=== PATIENT | female | born 1970 | race Caucasian/White ===

== ENCOUNTER 2016-11-13 05:10 | Observation (INO) | payer OTHER ==
[2016-11-03 08:38] VITALS: BMI 36.0
--- NOTE | 2016-11-03 09:15 | PAT Medication Instructions ---
Service Date Nov 03, 2016. Current Home Medication List Amitriptyline Hcl (Elavil), 100 MG PO HS Aspirin (Aspir-81), 81 MG PO QPM Atorvastatin (Lipitor), 40 MG PO HS Cholecalciferol (Vitamin D3), 3,000 TAB PO HS Docusate Sodium (Colace), 100 MG PO HS Flurbiprofen (Flurbiprofen), 100 MG PO BID Furosemide (Lasix), 20 MG PO DAILY PRN for SWELLING Hydrocodone/Acetaminophen 10MG/325MG ([place] 10MG/325MG), 1 TAB PO Q4 Hydroxychloroquine Sulfate (Plaquenil), 200 MG PO BID Levothyroxine Sodium (Levothyroxine Sodium), 1 TAB PO HS Metoprolol Tartrate (Lopressor) (Lopressor), 37.5 MG PO BID Omeprazole (Prilosec), 20 MG PO HS Tapentadol Hcl (Nucynta), 150 MG PO BID Topiramate (Topamax), 25 MG PO BID Medication Instructions For Your Scheduled Surgery - Hold the following medications the morning of surgery: Flurbiprofen (Flurbiprofen), 100 MG PO BID Furosemide (Lasix), 20 MG PO DAILY PRN for SWELLING - Take the following medications the morning of surgery with a sip of water OTHERWISE NOTHING TO EAT OR DRINK AFTER MIDNIGHT: Hydrocodone/Acetaminophen 10MG/325MG ([place] 10MG/325MG), 1 TAB PO Q4h (may take up to 4 hours prior to surgery if needed) Metoprolol Tartrate (Lopressor) (Lopressor), 37.5 MG PO BID Tapentadol Hcl (Nucynta), 150 MG PO BID (may take up to 4 hours prior to surgery if needed) Topiramate (Topamax), 25 MG PO BID Hydroxychloroquine Sulfate (Plaquenil), 200 MG PO BID - Take the following medications as scheduled the night before surgery: Atorvastatin (Lipitor), 40 MG PO HS Amitriptyline Hcl (Elavil), 100 MG PO HS Cholecalciferol (Vitamin D3), 3,000 TAB PO HS Docusate Sodium (Colace), 100 MG PO HS Aspirin (Aspir-81), 81 MG PO QPM (okay to continue per surgeon) Flurbiprofen (Flurbiprofen), 100 MG PO BID (okay to continue per surgeon) Hydrocodone/Acetaminophen 10MG/325MG ([place] 10MG/325MG), 1 TAB PO Q4h Metoprolol Tartrate (Lopressor) (Lopressor), 37.5 MG PO BID Levothyroxine Sodium (Levothyroxine Sodium), 1 TAB PO HS Tapentadol Hcl (Nucynta), 150 MG PO BID Topiramate (Topamax), 25 MG PO BID Omeprazole (Prilosec), 20 MG PO HS Hydroxychloroquine Sulfate (Plaquenil), 200 MG PO BID If you have any questions please call us at [phone] or [phone] or [phone]
[2016-11-03 10:05] LABS: BUN/CREATININE RATIO 18.3 (10-20); CALCIUM 9.7 mg/dl (8.5-10.1); CREATININE 0.65 mg/dl (0.60-1.20); POTASSIUM 4.2 mmol/L (3.5-5.1)
--- NOTE | 2016-11-03 10:10 | DIAGNOSTIC IMAGING REPORT ---
CHEST PREADMISSION(PA/LAT) CLINICAL HISTORY: Preoperative chest COMPARISON STUDY: 12/18/2005 FINDINGS: There is elevation right hemidiaphragm. There is blunting of the right lateral costophrenic angle. There are linear opacities the right lung base, likely represent atelectasis/scarring. These findings were not present in the December 2005 study, but were present on the CT gun stock checker radiograph of the abdomen and pelvis performed June 2016. The upper lung zones are clear. There is no failure.[ IMPRESSION: Elevation of the right hemidiaphragm with right basilar opacities likely atelectatic. In addition there is blunting of the right lateral costophrenic angle Electronically signed by: Rickey Joy M.D. 11/03/2016 10:09 AM Dictated Date/Time: 11/03/2016 10:07 AM
[2016-11-03 10:24] LABS: HEMATOCRIT 41.7 % (37-47); MEAN CELL VOLUME 92.7 fL (80-100); MEAN CORPUSCULAR HEMOGLOBIN 32.7 pg (25-34); MEAN CORPUSCULAR HGB CONC 35.3 g/dl (32-36); MEAN PLATELET VOLUME 9.7 fL (7.4-10.4); PLATELET COUNT 295 K/uL (130-400); WHITE BLOOD COUNT 11.68 K/uL (4.8-10.8)
[2016-11-03 10:26] LABS: BASO % 0.1 %; BASO ABS # 0.01 K/uL (0-0.2); COMPLETE YES; IG% 0.3 %; LYMPH % 10.4 %; LYMPH ABS # 1.21 K/uL (1.2-3.4); MONO % 3.1 %; NEUT % 86.1 %
[2016-11-13] VITALS (13 sets, daily range): BP systolic 104–137; BP diastolic 66–85; PULSE 92–135; TEMP 36.3–37.3; O2SAT 93–100; Ht 162.6 cm; Wt 91.0 kg
[~2016-11-13] VITALS: Ht 162.6 cm; Wt 91.0 kg
[~2016-11-13 05:10] MED LIST: AMIT100T2 PO; ANS100 PO; ASPI-232 PO; ATOR-24 PO; CHOL1000 PO; DOCU-94 PO; FURO-85 PO; HYDR-4079 PO; LEVO137T3 PO; METO25TA56 PO; PRLSR20 PO; TAPE75TA2 PO; TOPI25TA10 PO; [UNRECOGNIZED DRUG - CODE] PO
[2016-11-13] MEDS ORDERED: LACTATED RINGER'S 1000ML 1,000 ML IV SCH (06:00)
[2016-11-13] MEDS ORDERED: SCOPOLAMINE 1.5 MG TDSY TD SCH (06:00)
--- NOTE | 2016-11-13 06:28 | History & Physical Bridge Note ---
H&P Re-Evaluation Bridge Note: I have examined the patient, reviewed the History & Physical and in the interval since the performance of the History & Physical I have noted the following changes of clinical significance: No changes noted family at bedside abd neg
[2016-11-13] MEDS ORDERED: ROCURONIUM BROMIDE 10 MG/ML 5 ML VIAL ONE (07:00)
[2016-11-13] MEDS ORDERED: DEXAMETHASONE SOD INJ 4 MG/ML VIAL ONE ×2 (07:00→07:54)
[2016-11-13] MEDS ORDERED: ONDANSETRON INJ 2 MG/ML 2 ML VIAL ONE (07:00)
[2016-11-13] MEDS ORDERED: NEOSTIGMINE METHYLSULFATE 5 MG/5 ML SYR ONE (07:00)
[2016-11-13] MEDS ORDERED: GLYCOPYRROLATE INJ 0.2 MG/ML VIAL ONE (07:00)
[2016-11-13] MEDS ORDERED: LIDOCAINE HCL 2% 2 ML VIAL (20MG/ML) ONE (07:00)
[2016-11-13] MEDS ORDERED: PROPOFOL IV EMULSION 10 MG/ML 20 ML VIAL IV ONE (07:00)
[2016-11-13] MEDS ORDERED: MIDAZOLAM HCL 1 MG/ML 2ML VIAL ONE ×3 (07:01→11:29)
[2016-11-13] MEDS ORDERED: FENTANYL CITRATE INJ 50 MCG/1 ML 2 ML VIAL ONE ×2 (07:01→10:28)
[2016-11-13] MEDS ORDERED: BUPIVACAINE 0.5 % 5 MG/1 ML MPF 30ML VIAL ONE (07:08)
[2016-11-13] MEDS ORDERED: PHENYLEPHRINE 100MCG/ML 5ML SYR IV PRN (07:15)
[2016-11-13] MEDS ORDERED: ONDANSETRON INJ 2 MG/ML 2 ML VIAL IV PRN (07:15)
[2016-11-13] MEDS ORDERED: EpHEDrine SULFATE INJ 50 MG/ML AMP IV PRN (07:15)
[2016-11-13] MEDS ORDERED: ATROPINE SULFATE 0.1 MG/ML 5ML SYR IV PRN (07:15)
[2016-11-13] MEDS ORDERED: ALBUT/IPRATROP 3MG/0.5MG NEB 3 ML VIAL INH ONE (07:30)
[2016-11-13] MEDS ORDERED: LABETALOL HCL IV 5 MG/ML 20ML IV ONE (07:54)
[2016-11-13] MEDS ORDERED: HYDROmorphone INJ 2 MG/ML SYR/VIAL ONE (07:55)
--- NOTE | 2016-11-13 10:21 | [facility] Post Operative Brief Note ---
Immediate Operative Summary Operative Date Nov 13, 2016. Pre-Operative Diagnosis painful defecation, diverticultis of colon, intestinal adhesions Post-Operative Diagnosis painful defecation, diverticultis of colon, intestinal adhesions Procedure(s) Performed Diagnostic Laparoscopy; Extensive Lysis of Adhesions Surgeon Dr. Wesley Chauhan Crayon Molding Machine Operator Surgeon(s) Beny Fox PA-C Estimated Blood Loss 100ML Findings densa abdominal and pelvic adhesion with constricting band sigmoid rectal junction Specimens none per surgeon Dr. Wesley Chauhan Drains 19 katy per stab
--- NOTE | 2016-11-13 10:38 | Discharge Instructions ---
Discharge Instructions Date of Service Nov 13, 2016. Admission Reason for Admission: Diverticulitis Of Colon, Intestional Adhesions Discharge Discharge Diagnosis / Problem: Laparoscopy, lysis of adhesions Discharge Goals Goal(s): Decrease discomfort Activity Recommendations Activity Limitations: as noted below Lifting Limitations: no more than 10 pounds Shower/Bathe: no limitations . Instructions / Follow-Up Instructions / Follow-Up Dr. Box office next week to have drain removed, call [phone] Current Hospital Diet Patient's current hospital diet: Clear Liquid Diet Discharge Diet Recommended Diet: Regular Diet Procedures Procedures Performed: Diagnostic Laparoscopy; Extensive Lysis of Adhesions Pending Studies Studies pending at discharge: no Medical Emergencies . Who to Call and When: Medical Emergencies: If at any time you feel your situation is an emergency, please call 911 immediately. . Non-Emergent Contact Non-Emergency issues call your: Surgeon Call Non-Emergent contact if: you have a fever, temperature is above 101.5, your pain is not controlled, wound has increased redness, you have any medication questions . "Provider Documentation" section prepared by Beny Fox. VTE Core Measure Inpt VTE Proph given/why not?: SCD's
[2016-11-13] MEDS: HYDROmorphone INJ 2 MG/ML SYR/VIAL IV PRN ×7 (10:50→11:43)
[2016-11-13] MEDS ORDERED: IV FLUIDS COMPLETED PRN (11:00)
[2016-11-13] MEDS ORDERED: HYDROmorphone INJ 1 MG/ML SYR ONE ×2 (11:13→11:49)
[2016-11-13] MEDS ORDERED: NURSING VERBAL MED ORDER ONE ×4 (11:30→18:30)
--- NOTE | 2016-11-13 11:43 | OPERATIVE REPORT ---
DATE OF OPERATION: 11/13/2016 PREOPERATIVE DIAGNOSIS: Painful defecation, left lower quadrant pain. POSTOPERATIVE DIAGNOSIS: Same with dense pelvic and abdominal adhesions. PROCEDURE: Laparoscopy, lysis of dense abdominal and pelvic adhesions. SURGEON: Dr. Chauhan. VOTING MACHINE MECHANIC: Sathish Fox PA-C. OPERATION AND FINDINGS: SUMMARY: The patient was brought into the operating room theater. The Lorenz catheter was placed. She was placed in lithotomy position. The abdomen was prepped with Betadine solution and properly draped. Systemic antibiotics were given. I made a small opening above the umbilicus sufficient enough to insert Phyllis clamps to elevate the abdominal wall. A small opening in the fascia was made, 0 Vicryl suture was used as stay suture to control the fashion and 5 mm trocar was inserted under direct visualization. CO2 inflated. At this point, we then were able to place the scope and identified the patient had a significant abdominal adhesions in the midline incision, these were to the abdominal wall. We then at this point placed a 5 mm left flank port, then with this we were able to lyse some adhesions, some of them could not access in that fashion. We placed a left lower quadrant port. With the 2 camera holes there we were able then to free the abdominal wall adhesions. These were mostly omental adhesions. The attention was turned to the pelvis where the patient had a long history of significant sharp pain with defecation. She has had colonoscopy, CAT scans which was pretty much unremarkable, some mild diverticular disease. At this point, we placed a 5 mm right lower quadrant port and visualized in the left gutter that the patient had the omentum draped pretty much over the pelvic area but in right lower quadrant there were small bowel adhesions to the pelvic wall, quite extensive going down towards the pelvic area. We also could see that the patient on the left side had significant adhesions to the omentum going down towards the pelvis. We started dissecting the white line of Toldt on the left side and took down the sigmoid colon to the point that we were almost at the round ligament area, but once we were there we started meeting significant adhesions. We at this point changed our maneuver and tried to approach more anteriorly and freed up the abdominal adhesions down to that point. One plane of dissection was the bladder that we could see and actually could feel the Lorenz. We stayed underneath this to take it down underneath the symphysis pubis in a similar line with the extensive adhesions down to the end of the pelvic area were quite significant. The right side as stated down in the pelvic ring the small bowel was strictly adherent. We took meticulously dissected and freed everything up. We stayed away from the ureters. We at this point followed the sigmoid colon which showed the tenia. There was no really significant inflammatory process in the sigmoid colon, although the omentum and the epiploica were prominent. We took it down almost to the entry of the pelvic brim down into the pelvis. There was a really sharp cutoff point with an adhesive band. We could see the rectum and see the distal sigmoid colon and this was pulled down. We freed this up and once we freed this up and it seemed like to align that there was no true obstruction identified any more. We irrigated the pelvis copiously and then decided to drain it with 19 Suleman drain through a left lower quadrant stab wound positioned in the cul-de-sac. We did not enter the bowel and we spent about 2-1/2 hours lysing adhesions. The procedure was tolerated well. The wounds were closed with stay sutures in the umbilical area, the other ones 4-0 Monocryl. Steri-Strips applied. The patient was taken to recovery in good condition. Estimated blood loss approximately 100 mL. I attest to the content of the Intraoperative Record and any orders documented therein. Any exceptio ns are noted below.
[2016-11-13] MEDS ORDERED: HYDROCODONE/ACETAMI 10/325 TAB PO PRN (12:00)
[2016-11-13] MEDS: MoRPHine SULFATE 4 MG/ML 1 ML CARP\\VIAL IV PRN ×2 (13:12→15:02)
[2016-11-13] MEDS: SODIUM CHLORIDE 0.9% 1000ML 1,000 ML IV SCH ×3 (13:13→20:14)
--- NOTE | 2016-11-13 13:32 | Anesthesiology Progress Note ---
Anesthesia Post Op Note Date & Time Nov 13, 2016 at 13:25 Vital Signs Pain Intensity: 7.0 Vital Signs Past 12 Hours Date Time Temp Pulse Resp B/P Pulse Ox O2 Delivery O2 Flow Rate FiO2 11/13/16 12:45 Nasal Cannula 4.0 11/13/16 12:45 Nasal Cannula 4.0 11/13/16 12:45 36.7 101 18 110/66 95 Nasal Cannula 4.0 11/13/16 12:15 36.5 106 18 113/71 94 Nasal Cannula 4.0 11/13/16 12:06 100 16 11/13/16 12:06 98 16 96 11/13/16 12:05 111/76 11/13/16 12:01 110 15 97 11/13/16 12:01 110 15 11/13/16 12:00 113/79 11/13/16 11:56 99 16 11/13/16 11:56 97 16 97 11/13/16 11:55 97 16 11/13/16 11:55 98 16 121/76 96 11/13/16 11:50 106 15 111/59 96 11/13/16 11:50 107 15 11/13/16 11:49 110 24 11/13/16 11:49 111 24 99 11/13/16 11:47 108/71 11/13/16 11:44 106 17 97 11/13/16 11:44 105 17 11/13/16 11:43 107 14 98 11/13/16 11:43 109 14 11/13/16 11:40 36.2 11/13/16 11:40 125/69 11/13/16 11:38 105 17 94 11/13/16 11:38 105 17 11/13/16 11:33 109 19 11/13/16 11:33 110 19 98 11/13/16 11:30 106/68 11/13/16 11:28 93 10 95 11/13/16 11:28 93 10 11/13/16 11:27 97 17 11/13/16 11:27 97 17 98 11/13/16 11:25 123/64 11/13/16 11:22 102 17 98 11/13/16 11:22 102 17 11/13/16 11:21 118/48 11/13/16 11:17 100 13 97 11/13/16 11:17 99 13 11/13/16 11:16 113/74 11/13/16 11:12 103 24 11/13/16 11:12 105 24 96 11/13/16 11:10 107/76 11/13/16 11:07 98 20 11/13/16 11:07 100 20 97 11/13/16 11:06 119/77 11/13/16 11:02 87 16 98 11/13/16 11:02 91 16 11/13/16 11:00 107/77 11/13/16 10:57 95 12 97 11/13/16 10:57 94 12 11/13/16 10:56 96 16 11/13/16 10:56 96 16 98 11/13/16 10:55 114/79 11/13/16 10:51 91 19 100 11/13/16 10:51 92 16 11/13/16 10:50 105/78 11/13/16 10:46 90 14 11/13/16 10:46 88 14 118/70 100 11/13/16 10:41 90 16 11/13/16 10:41 89 16 98 11/13/16 10:40 100/77 11/13/16 10:39 86 13 11/13/16 10:39 85 13 97 11/13/16 10:35 116/72 11/13/16 10:34 95 18 11/13/16 10:34 96 18 99 11/13/16 10:30 114/76 11/13/16 10:29 85 16 101/65 92 11/13/16 10:29 36.3 90 16 114/76 99 Mask 15 11/13/16 10:29 85 16 11/13/16 07:15 92 16 95 Room Air 11/13/16 05:33 36.6 100 20 104/80 100 Room Air Notes Mental Status: alert / awake / arousable, participated in evaluation Pt Amnestic to Procedure: Yes Nausea / Vomiting: adequately controlled Pain: adequately controlled Airway Patency, RR, SpO2: stable & adequate BP & HR: stable & adequate Hydration State: stable & adequate Anesthetic Complications: no major complications apparent Shortly after being discharged to the floor I received a call from the floor that the patient was complaining of discomfort. She did not complain of discomfort while she was in the PACU and I saw her about fifteen or twenty minutes before she was discharged and she looked fine. When I went to her room, her left conjuctiva was injected near the medial canthus and she was tearing. I explained to her that she probably rubbed her eyes on the way up to her room and that this happens frequently to patients. I placed her on ketorolac drops and gentamycin opthalmic solution.
[2016-11-13] MEDS ORDERED: INFLUENZA ADMINISTRATION CHARGE ONE (14:30)
[2016-11-13] MEDS ORDERED: INFLUENZA VIRUS QUAD VACCINE 0.5 ML SYR IM. ONE (14:30)
[2016-11-13] MEDS: KETOROLAC 0.5% OP SOLN 3 ML BTL OPL SCH ×2 (14:58→18:34)
[2016-11-13] MEDS ORDERED: NALOXONE HCL 0.4 MG/1 ML VIAL/CARP IV PRN (15:00)
[2016-11-13] MEDS: GENTAMICIN SULFATE 0.3% OP SOLN 5 ML BTL OPL SCH ×2 (15:09→19:00)
[2016-11-13] MEDS: HYDROmorphone HCL 0.5MG/ML 50 ML CASSETTE IV PRN ×3 (15:41→19:02)
[2016-11-13] MEDS: CHECK SCOPOLAMINE PATCH PLACEMENT SCH ×2 (16:00→23:49)
[2016-11-13] MEDS: HYDROCODONE/ACETAMOPHEN 5/325MG TAB PO PRN (18:41)
[2016-11-13] MEDS: TAPENTADOL ER 50 MG TABCR PO SCH (18:42)
[2016-11-13] MEDS: AMITRIPTYLINE HCL 100 MG TAB PO SCH (18:43)
[2016-11-13] MEDS: LEVOTHYROXINE 137 MCG TAB PO SCH (18:44)
[2016-11-13] MEDS: METOPROLOL TARTRATE 25 MG TAB PO SCH (18:45)
[2016-11-13] MEDS: PANTOprazole SOD 40 MG TAB PO SCH (18:46)
[2016-11-13] MEDS: TOPIRAMATE 25 MG TAB PO SCH (18:47)
[2016-11-13] MEDS: HYDROXYCHLOROQUINE SULFATE 200 MG TAB PO SCH (18:47)
[2016-11-13] MEDS ORDERED: TAPENTADOL ER 50 MG TABCR PO SCH (21:00)
[2016-11-13] MEDS ORDERED: DOCUSATE SODIUM 100 MG CAP PO SCH (21:00)
[2016-11-13] MEDS: ONDANSETRON INJ 2 MG/ML 2 ML VIAL IV PRN (23:50)
[2016-11-14 01:17] LABS: HEMATOCRIT 37.4 % (37-47); IG% 0.4 %; LYMPH % 9.9 %; LYMPH ABS # 1.08 K/uL (1.2-3.4); MEAN CELL VOLUME 91.9 fL (80-100); MEAN CORPUSCULAR HEMOGLOBIN 32.4 pg (25-34); MEAN PLATELET VOLUME 9.4 fL (7.4-10.4); NEUT % 84.7 %; PLATELET COUNT 248 K/uL (130-400); RED BLOOD COUNT 4.07 M/uL (4.2-5.4); WHITE BLOOD COUNT 10.93 K/uL (4.8-10.8)
[2016-11-14 01:22] LABS: COMPLETE YES; MEAN CORPUSCULAR HGB CONC 35.3 g/dl (32-36)
[2016-11-14 01:33] VITALS: PULSE 110; O2SAT 94
[2016-11-14 02:01] LABS: ALB/GLOB RATIO 1.1 (0.9-2); BUN/CREATININE RATIO 10.1 (10-20); CALCIUM 8.4 mg/dl (8.5-10.1); CREATININE 0.81 mg/dl (0.60-1.20)
[2016-11-14 03:33] VITALS: BP 102/64; PULSE 110; TEMP 37.3; O2SAT 99
[2016-11-14] MEDS: SODIUM CHLORIDE 0.9% 1000ML 1,000 ML IV SCH ×2 (03:59→17:15)
--- NOTE | 2016-11-14 04:56 | Medical Consult ---
Consultation Date of Consultation: Nov 14, 2016. Attending Physician: Wesley Chauhan M.D. Reason for Consultation: Tachycardia postoperatively. History of Present Illness The patient is a 46 female who underwent lysis of adhesions by Dr. Christine earlier in the day. She then developed an increased heart rate, with a known history of SVT, and consult was placed. The patient is resting comfortably this time. She is aware of her heartbeat beating a little more past than usual. She has no chest pain or shortness of breath, lightheadedness or dizziness, numbness or tingling in arms or legs, and reports that her postoperative pain is well controlled. Family History Cancer Diabetes mellitus Gallbladder disease Heart disease Hypertension Kidney disease Kidney stones Lung disease Social History Smoking Status: Current Every Day Smoker Smokeless Tobacco Use: No Alcohol Use: none Drug Use: none Marital Status: Housing Status: lives with family Occupation Status: disabled Allergies Coded Allergies: Adhesives (Verified Allergy, Mild, [id number]-[id number]-DAEZ BLISTERS, 11/13/16) Oxycodone (Unverified Allergy, Unknown, EXTENDED VOMITING FOR DAYS, ) Prednisone (Unverified Allergy, Unknown, ORAL PREDNISONE-BLOOD DIARRHEA, ) Rofecoxib (Verified Allergy, Unknown, RASH/HIVES, 11/13/16) Current Inpatient Medications Current Inpatient Medications Medications (Trade) Dose Ordered Sig/Neal Route Start Time Stop Time Status Last Admin Dose Admin Miscellaneous (Remove Transderm-Scop Patch) 1 ea Q72H N/A 11/16/16 06:00 11/16/16 06:01 Miscellaneous Information 1 ea 1 ea QS N/A 11/13/16 16:00 11/16/16 05:59 11/13/16 23:49 1 EA Sodium Chloride (Nss 1000ml) 1,000 ml @ 125 mls/hr Q8H IV 11/13/16 10:32 12/13/16 10:31 11/14/16 03:59 125 MLS/HR Ondansetron HCl (Zofran Inj) 4 mg Q4H PRN IV 11/13/16 10:45 12/13/16 10:44 11/13/16 23:50 4 MG Acetaminophen/ Hydrocodone Bitart ([place] 5/325 Tab) 1 tab Q4H PRN PO 11/13/16 10:45 11/27/16 10:44 11/13/16 18:41 1 TAB Morphine Sulfate (MoRPHine SULFATE INJ) 4 mg Q1H PRN IV 11/13/16 10:45 11/27/16 10:44 11/13/16 15:02 4 MG Amitriptyline HCl (Elavil Tab) 100 mg HS PO 11/13/16 21:00 12/13/16 20:59 11/13/16 18:43 100 MG Docusate Sodium (coLACE CAP) 100 mg HS PO 11/13/16 21:00 12/13/16 20:59 11/13/16 18:43 100 MG Acetaminophen/ Hydrocodone Bitart ([place] 10/325 Tab) 1 tab Q4 PRN PO 11/13/16 12:00 11/27/16 11:59 Hydroxychloroquine Sulfate (Plaquenil Tab) 200 mg BID PO 11/13/16 21:00 12/13/16 20:59 11/13/16 18:47 200 MG Levothyroxine Sodium (Synthroid Tab) 137 mcg HS PO 11/13/16 21:00 12/13/16 20:59 11/13/16 18:44 137 MCG Metoprolol Tartrate (Lopressor Tab) 37.5 mg BID PO 11/13/16 21:00 12/13/16 20:59 11/13/16 18:45 37.5 MG Topiramate (Topamax Tab) 25 mg BID PO 11/13/16 21:00 12/13/16 20:59 11/13/16 18:47 25 MG Miscellaneous Information (Order Awaiting Action) 1 ea QS N/A 11/13/16 16:00 12/13/16 15:59 Pantoprazole Sodium (Protonix Tab) 40 mg HS PO 11/13/16 21:00 12/13/16 20:59 11/13/16 18:46 40 MG Miscellaneous (Iv Fluids Completed) 1 ea PRN PRN N/A 11/13/16 11:00 11/13/17 10:59 Ketorolac Tromethamine (Acular 0.5 Oph Soln) 2 drops 4XDQ4H OPL 11/13/16 15:00 12/13/16 14:59 11/13/16 18:34 2 DROPS Gentamicin Sulfate (Gentamicin 0.3% Oph Soln) 2 drops 4XDQ4H OPL 11/13/16 15:00 11/23/16 14:59 11/13/16 19:00 2 DROPS Naloxone HCl (Narcan Inj) 0.1 mg Q5M PRN IV 11/13/16 15:00 12/13/16 14:59 Hydromorphone HCl 25 mg 25 mg PRN PRN IV 11/13/16 15:00 11/27/16 14:59 11/13/16 19:02 25 MG Sodium Chloride (Nss 1000ml) 1,000 ml @ 15 mls/hr Q24H IV 11/13/16 14:49 12/13/16 14:48 Tapentadol (Nucynta Er Tab) 150 mg BID PO 11/13/16 19:00 12/13/16 18:59 11/13/16 18:42 150 MG Review of Systems The patient denies chest pain, shortness of breath, cough, lower extremity swelling, vision change, hearing change, sore throat, fevers, chills, sweats, fatigue, nausea, vomiting, blood in urine or stool, dysuria, urinary frequency or urgency, lightheadedness, dizziness, headache, memory loss, rash, abnormal bruising or bleeding, imbalance, focal or generalized weakness, numbness or tingling in arms or legs, arthralgias or myalgias, back or neck pain, night sweats, or allergy symptoms. The review of systems is otherwise negative other than for that already noted above, and at least 10 systems have been reviewed. Physical Exam Date Time Temp Pulse Resp B/P Pulse Ox O2 Delivery O2 Flow Rate FiO2 11/14/16 03:33 37.3 110 16 102/64 99 Room Air 11/14/16 01:33 110 94 Room Air 11/13/16 23:05 36.4 105 16 105/69 96 Room Air 11/13/16 20:00 Room Air 11/13/16 18:52 37.2 132 18 121/69 94 Room Air 11/13/16 17:51 37.3 135 18 130/81 94 Room Air 11/13/16 16:51 116 11/13/16 16:43 37.1 130 18 121/73 96 Room Air 11/13/16 15:42 37.0 116 18 122/83 99 Room Air 11/13/16 15:30 Room Air 11/13/16 15:16 37.3 117 18 115/79 97 Room Air 11/13/16 14:18 36.3 115 18 137/85 97 Room Air 11/13/16 13:29 101 16 108/67 93 Nasal Cannula 4.0 11/13/16 12:45 Nasal Cannula 4.0 11/13/16 12:45 Nasal Cannula 4.0 11/13/16 12:45 36.7 101 18 110/66 95 Nasal Cannula 4.0 11/13/16 12:15 36.5 106 18 113/71 94 Nasal Cannula 4.0 11/13/16 12:06 100 16 11/13/16 12:06 98 16 96 11/13/16 12:05 111/76 11/13/16 12:01 110 15 97 11/13/16 12:01 110 15 11/13/16 12:00 113/79 11/13/16 11:56 99 16 11/13/16 11:56 97 16 97 11/13/16 11:55 97 16 11/13/16 11:55 98 16 121/76 96 11/13/16 11:50 106 15 111/59 96 11/13/16 11:50 107 15 11/13/16 11:49 110 24 11/13/16 11:49 111 24 99 11/13/16 11:47 108/71 11/13/16 11:44 106 17 97 11/13/16 11:44 105 17 11/13/16 11:43 107 14 98 11/13/16 11:43 109 14 11/13/16 11:40 36.2 11/13/16 11:40 125/69 11/13/16 11:38 105 17 94 11/13/16 11:38 105 17 11/13/16 11:33 109 19 11/13/16 11:33 110 19 98 11/13/16 11:30 106/68 11/13/16 11:28 93 10 95 11/13/16 11:28 93 10 11/13/16 11:27 97 17 11/13/16 11:27 97 17 98 11/13/16 11:25 123/64 11/13/16 11:22 102 17 98 11/13/16 11:22 102 17 11/13/16 11:21 118/48 11/13/16 11:17 100 13 97 11/13/16 11:17 99 13 11/13/16 11:16 113/74 11/13/16 11:12 103 24 11/13/16 11:12 105 24 96 11/13/16 11:10 107/76 11/13/16 11:07 98 20 11/13/16 11:07 100 20 97 11/13/16 11:06 119/77 11/13/16 11:02 87 16 98 11/13/16 11:02 91 16 11/13/16 11:00 107/77 11/13/16 10:57 95 12 97 11/13/16 10:57 94 12 11/13/16 10:56 96 16 11/13/16 10:56 96 16 98 11/13/16 10:55 114/79 11/13/16 10:51 91 19 100 11/13/16 10:51 92 16 11/13/16 10:50 105/78 11/13/16 10:46 90 14 11/13/16 10:46 88 14 118/70 100 11/13/16 10:41 90 16 11/13/16 10:41 89 16 98 11/13/16 10:40 100/77 11/13/16 10:39 86 13 11/13/16 10:39 85 13 97 11/13/16 10:35 116/72 11/13/16 10:34 95 18 11/13/16 10:34 96 18 99 11/13/16 10:30 114/76 11/13/16 10:29 85 16 101/65 92 11/13/16 10:29 36.3 90 16 114/76 99 Mask 15 11/13/16 10:29 85 16 11/13/16 07:15 92 16 95 Room Air 11/13/16 05:33 36.6 100 20 104/80 100 Room Air The patient is awake, well-developed and adequately nourished, alert and oriented 3, normocephalic and atraumatic, lying in bed and in no acute distress. HEENT--PERRL, EOMI, mucous membranes and oropharynx mildly dry. Neck--supple, no JVD or bruits, thyroid normal, trachea midline, no adenopathy. Heart--mildly tachycardic and regular, no extra beats, no murmurs, rubs or gallops. Lungs--clear bilaterally with good air movement, no respiratory distress, no accessory muscle use. Abdomen--normal bowel sounds and soft, nontender and nondistended, no hernias or masses, no organomegaly. Extremities--no cyanosis, clubbing or edema. There are good distal pulses b/l. Dermatologic--normal skin turgor, normal color, warm and dry, no abnormal lymph nodes, no rash. Neurologic--cranial nerves II through XII grossly intact, motor and sensory examination normal. Rheumatologic--normal range of motion, nontender, muscles and joints. Psychiatric--normal affect. Laboratory Results Last 24 Hours Test 11/14/16 00:50 11/14/16 04:44 White Blood Count 10.93 K/uL Red Blood Count 4.07 M/uL Hemoglobin 13.2 g/dL Hematocrit 37.4 % Mean Corpuscular Volume 91.9 fL Mean Corpuscular Hemoglobin 32.4 pg Mean Corpuscular Hemoglobin Concent 35.3 g/dl Platelet Count 248 K/uL Mean Platelet Volume 9.4 fL Neutrophils (%) (Auto) 84.7 % Lymphocytes (%) (Auto) 9.9 % Monocytes (%) (Auto) 5.0 % Eosinophils (%) (Auto) 0.0 % Basophils (%) (Auto) 0.0 % Neutrophils # (Auto) 9.26 K/uL Lymphocytes # (Auto) 1.08 K/uL Monocytes # (Auto) 0.55 K/uL Eosinophils # (Auto) 0.00 K/uL Basophils # (Auto) 0.00 K/uL RDW Standard Deviation 42.5 fL RDW Coefficient of Variation 12.6 % Immature Granulocyte % (Auto) 0.4 % Immature Granulocyte # (Auto) 0.04 K/uL Sodium Level 143 mmol/L Potassium Level 4.0 mmol/L Chloride Level 111 mmol/L Carbon Dioxide Level 21 mmol/L Anion Gap 11.0 mmol/L Blood Urea Nitrogen 8 mg/dl Creatinine 0.81 mg/dl Est Creatinine Clear Calc Drug Dose 94.9 ml/min Estimated GFR () 100.9 Estimated GFR (Non- 87.1 BUN/Creatinine Ratio 10.1 Random Glucose 180 mg/dl Calcium Level 8.4 mg/dl Magnesium Level 2.0 mg/dl Total Bilirubin 0.3 mg/dl Aspartate Amino Transf (AST/SGOT) 21 U/L Alanine Aminotransferase (ALT/SGPT) 46 U/L Alkaline Phosphatase 73 U/L Total Protein 7.0 gm/dl Albumin 3.7 gm/dl Globulin 3.3 gm/dl Albumin/Globulin Ratio 1.1 Assessment & Plan Sinus tachycardia--the patient is seen postoperatively with a mild sinus tachycardia is medically stable. EKG shows no acute ST-T changes or concerning rhythms. We'll check a CBC with differential, chemistry profile and magnesium level. Continue with IV fluid resuscitation. Of note, the patient did not take her morning metoprolol tartrate dose since she took her her evening dose last night 11:00 and left for surgery at 5:00 this morning. Therefore, her tachycardia is not unexpected, and would continue her usual dosing of metoprolol tartrate 37.5 mg by mouth twice a day. Hold furosemide 20 mg by mouth daily when necessary. Can resume aspirin 81 mg by mouth daily whenever okay with surgery. Hypothyroidism--continue levothyroxine sodium 137 g by mouth daily. Lupus--continue hydroxychloroquine sulfate at 200 mg by mouth twice a day. Chronic pain/insomnia--continue amitriptyline 100 mg by mouth at bedtime, flurbiprofen 100milligrams by mouth twice a day, tapendatol 150 mg by mouth twice a day, topiramate 25 mg by mouth twice a day, and [place] 10/325 one by mouth every 4 hours when necessary. GERD--omeprazole 20 mg by mouth at bedtime changed to pantoprazole 40 mg by mouth at bedtime. Hypercholesterolemia--continue atorvastatin 40 mg by mouth at bedtime.
[2016-11-14] MEDS: HYDROmorphone HCL 0.5MG/ML 50 ML CASSETTE IV PRN ×3 (07:11→18:59)
[2016-11-14 07:28] VITALS: BP 123/84; PULSE 100; TEMP 36.8; O2SAT 98
[2016-11-14 07:28] LABS: COMPLETE YES; EOS % 0.1 %; HEMATOCRIT 37.4 % (37-47); IG% 0.3 %; LYMPH % 13.1 %; LYMPH ABS # 1.97 K/uL (1.2-3.4); MEAN CELL VOLUME 92.8 fL (80-100); MEAN CORPUSCULAR HGB CONC 34.5 g/dl (32-36); MEAN PLATELET VOLUME 9.2 fL (7.4-10.4); MONO % 6.9 %; NEUT % 79.6 %; PLATELET COUNT 236 K/uL (130-400); RED BLOOD COUNT 4.03 M/uL (4.2-5.4); WHITE BLOOD COUNT 15.01 K/uL (4.8-10.8)
[2016-11-14] MEDS: CHECK SCOPOLAMINE PATCH PLACEMENT SCH ×2 (08:00→16:00)
[2016-11-14 08:02] LABS: BUN/CREATININE RATIO 13.2 (10-20); CALCIUM 8.7 mg/dl (8.5-10.1); CREATININE 0.66 mg/dl (0.60-1.20); POTASSIUM 4.1 mmol/L (3.5-5.1)
[2016-11-14] MEDS: HYDROXYCHLOROQUINE SULFATE 200 MG TAB PO SCH ×2 (10:03→20:11)
[2016-11-14] MEDS: TAPENTADOL ER 50 MG TABCR PO SCH ×2 (10:03→20:11)
[2016-11-14] MEDS: METOPROLOL TARTRATE 25 MG TAB PO SCH ×2 (10:06→20:12)
[2016-11-14] MEDS: HYDROCODONE/ACETAMOPHEN 5/325MG TAB PO PRN ×2 (10:08→17:14)
[2016-11-14] MEDS: KETOROLAC 0.5% OP SOLN 3 ML BTL OPL SCH ×4 (10:14→19:00)
[2016-11-14] MEDS: GENTAMICIN SULFATE 0.3% OP SOLN 5 ML BTL OPL SCH ×4 (10:20→19:00)
[2016-11-14 14:54] VITALS: BP 118/70; PULSE 82; TEMP 36.7; O2SAT 99
--- NOTE | 2016-11-14 15:48 | Progress Note ---
Subjective Date of Service: Nov 14, 2016. Subjective Pt evaluation today including: conversation w/ patient, physical exam, chart review, lab review, review of inpatient medication list Review of Systems Constitutional: + fatigue, No chills, No fever, No problem reported, No see HPI , No sweats, No weakness, No weight loss Eyes: No diplopia, No discharge, No eye pain, No problem reported, No redness, No see HPI, No worsening of vision ENT: No dental problems, No hearing loss, No nasal symptoms, No problem reported, No see HPI, No sore throat, No tinnitus, No trouble swallowing, No unusual epistaxis Respiratory: No cough, No dyspnea at rest, No dyspnea on exertion, No hemoptysis, No problem reported, No see HPI, No shortness of breath, No sputum, No wheezing Cardiac: No PND, No chest pain, No claudication, No edema, No orthopnea, No palpitations, No problem reported, No see HPI Abdomen: + diarrhea, No GI bleeding, No constipation, No nausea, No pain, No problem reported, No see HPI, No vomiting Musculoskeletal: No calf pain, No joint pain, No muscle pain, No problem reported, No see HPI, No swelling Female : No abnormal vaginal bleeding, No dysuria, No hematuria, No incontinence, No problem reported, No see HPI, No urinary frequency, No vaginal discharge Neurologic: No balance problems, No memory loss, No numbness/tingling, No paralysis, No problem reported, No see HPI, No vertigo, No weakness Psychiatric: No anhedonism, No anxiety, No depression symptoms, No insomnia, No problem reported, No see HPI, No substance abuse Heme: No abnormal bleeding/bruising, No clotting problems, No night sweats, No problem reported, No see HPI, No swollen lymph nodes Endo: No excessive thirst, No excessive urination, No fatigue, No problem reported, No see HPI Skin: No bleeding, No color change, No itch, No new/changing skin lesions, No problem reported, No rash, No see HPI Medications Current Inpatient Medications Medications (Trade) Dose Ordered Sig/Neal Route Start Time Stop Time Status Last Admin Dose Admin Miscellaneous (Remove Transderm-Scop Patch) 1 ea Q72H N/A 11/16/16 06:00 11/16/16 06:01 Miscellaneous Information (Check Scopolamine Patch Placement) 1 ea QS N/A 11/13/16 16:00 11/16/16 05:59 11/14/16 08:00 1 EA Ondansetron HCl (Zofran Inj) 4 mg Q4H PRN IV 11/13/16 10:45 12/13/16 10:44 11/13/16 23:50 4 MG Acetaminophen/ Hydrocodone Bitart ([place] 5/325 Tab) 1 tab Q4H PRN PO 11/13/16 10:45 11/27/16 10:44 11/14/16 10:08 1 TAB Morphine Sulfate (MoRPHine SULFATE INJ) 4 mg Q1H PRN IV 11/13/16 10:45 11/27/16 10:44 11/13/16 15:02 4 MG Amitriptyline HCl (Elavil Tab) 100 mg HS PO 11/13/16 21:00 12/13/16 20:59 11/13/16 18:43 100 MG Acetaminophen/ Hydrocodone Bitart ([place] 10/325 Tab) 1 tab Q4 PRN PO 11/13/16 12:00 11/27/16 11:59 Hydroxychloroquine Sulfate (Plaquenil Tab) 200 mg BID PO 11/13/16 21:00 12/13/16 20:59 11/14/16 10:03 200 MG Levothyroxine Sodium (Synthroid Tab) 137 mcg HS PO 11/13/16 21:00 12/13/16 20:59 11/13/16 18:44 137 MCG Metoprolol Tartrate (Lopressor Tab) 37.5 mg BID PO 11/13/16 21:00 12/13/16 20:59 11/14/16 10:06 37.5 MG Topiramate (Topamax Tab) 25 mg BID PO 11/13/16 21:00 12/13/16 20:59 11/13/16 18:47 25 MG Miscellaneous Information (Order Awaiting Action) 1 ea QS N/A 11/13/16 16:00 12/13/16 15:59 Pantoprazole Sodium (Protonix Tab) 40 mg HS PO 11/13/16 21:00 12/13/16 20:59 11/13/16 18:46 40 MG Miscellaneous (Iv Fluids Completed) 1 ea PRN PRN N/A 11/13/16 11:00 11/13/17 10:59 Ketorolac Tromethamine (Acular 0.5 Oph Soln) 2 drops 4XDQ4H OPL 11/13/16 15:00 12/13/16 14:59 11/14/16 12:55 2 DROPS Gentamicin Sulfate (Gentamicin 0.3% Oph Soln) 2 drops 4XDQ4H OPL 11/13/16 15:00 11/23/16 14:59 11/14/16 12:55 2 DROPS Naloxone HCl (Narcan Inj) 0.1 mg Q5M PRN IV 11/13/16 15:00 12/13/16 14:59 Hydromorphone HCl 25 mg 25 mg PRN PRN IV 11/13/16 15:00 11/27/16 14:59 11/14/16 11:29 25 MG Sodium Chloride (Nss 1000ml) 1,000 ml @ 15 mls/hr Q24H IV 11/13/16 14:49 12/13/16 14:48 Tapentadol (Nucynta Er Tab) 150 mg BID PO 11/13/16 19:00 12/13/16 18:59 11/14/16 10:03 150 MG Objective Vital Signs Date Time Temp Pulse Resp B/P Pulse Ox O2 Delivery O2 Flow Rate FiO2 11/14/16 14:54 36.7 82 18 118/70 99 Room Air 11/14/16 08:30 Room Air 11/14/16 07:28 36.8 100 18 123/84 98 Room Air 11/14/16 03:33 37.3 110 16 102/64 99 Room Air 11/14/16 01:33 110 94 Room Air 11/13/16 23:05 36.4 105 16 105/69 96 Room Air 11/13/16 20:00 Room Air 11/13/16 18:52 37.2 132 18 121/69 94 Room Air 11/13/16 17:51 37.3 135 18 130/81 94 Room Air 11/13/16 16:51 116 11/13/16 16:43 37.1 130 18 121/73 96 Room Air 11/13/16 15:42 37.0 116 18 122/83 99 Room Air Physical Exam General Appearance: no apparent distress Eyes: normal inspection, EOMI ENT: normal ENT inspection, hearing grossly normal, TMs normal Neck: supple Respiratory/Chest: chest non-tender, lungs clear, normal breath sounds, no respiratory distress, no accessory muscle use Cardiovascular: regular rate, rhythm, no edema, no gallop, no JVD, no murmur Abdomen: normal bowel sounds, + distended, + tenderness Extremities: normal range of motion, non-tender, normal inspection, no pedal edema Neurologic/Psychiatric: 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, no motor/sensory deficits, alert, normal mood/affect, oriented x 3 Skin: normal color, warm/dry, no rash Lymphatic: no adenopathy Laboratory Results Last 24 Hours Test 11/14/16 00:50 11/14/16 07:08 11/14/16 08:22 White Blood Count 10.93 K/uL 15.01 K/uL Red Blood Count 4.07 M/uL 4.03 M/uL Hemoglobin 13.2 g/dL 12.9 g/dL Hematocrit 37.4 % 37.4 % Mean Corpuscular Volume 91.9 fL 92.8 fL Mean Corpuscular Hemoglobin 32.4 pg 32.0 pg Mean Corpuscular Hemoglobin Concent 35.3 g/dl 34.5 g/dl Platelet Count 248 K/uL 236 K/uL Mean Platelet Volume 9.4 fL 9.2 fL Neutrophils (%) (Auto) 84.7 % 79.6 % Lymphocytes (%) (Auto) 9.9 % 13.1 % Monocytes (%) (Auto) 5.0 % 6.9 % Eosinophils (%) (Auto) 0.0 % 0.1 % Basophils (%) (Auto) 0.0 % 0.0 % Neutrophils # (Auto) 9.26 K/uL 11.95 K/uL Lymphocytes # (Auto) 1.08 K/uL 1.97 K/uL Monocytes # (Auto) 0.55 K/uL 1.04 K/uL Eosinophils # (Auto) 0.00 K/uL 0.01 K/uL Basophils # (Auto) 0.00 K/uL 0.00 K/uL RDW Standard Deviation 42.5 fL 43.1 fL RDW Coefficient of Variation 12.6 % 12.7 % Immature Granulocyte % (Auto) 0.4 % 0.3 % Immature Granulocyte # (Auto) 0.04 K/uL 0.04 K/uL Sodium Level 143 mmol/L 142 mmol/L Potassium Level 4.0 mmol/L 4.1 mmol/L Chloride Level 111 mmol/L 109 mmol/L Carbon Dioxide Level 21 mmol/L 26 mmol/L Anion Gap 11.0 mmol/L 7.0 mmol/L Blood Urea Nitrogen 8 mg/dl 9 mg/dl Creatinine 0.81 mg/dl 0.66 mg/dl Est Creatinine Clear Calc Drug Dose 94.9 ml/min 116.4 ml/min Estimated GFR () 100.9 122.8 Estimated GFR (Non- 87.1 105.9 BUN/Creatinine Ratio 10.1 13.2 Random Glucose 180 mg/dl 118 mg/dl Calcium Level 8.4 mg/dl 8.7 mg/dl Magnesium Level 2.0 mg/dl Total Bilirubin 0.3 mg/dl Aspartate Amino Transf (AST/SGOT) 21 U/L Alanine Aminotransferase (ALT/SGPT) 46 U/L Alkaline Phosphatase 73 U/L Total Protein 7.0 gm/dl Albumin 3.7 gm/dl Globulin 3.3 gm/dl Albumin/Globulin Ratio 1.1 Thyroid Stimulating Hormone (TSH) 0.699 uIu/ml Procalcitonin < 0.05 ng/mL Assessment and Plan 46 years old female with PMHx of previous abdominal surgery (appears to be stomach bypass from her description), Lupus on hydroxychloroquine, HTN and hypothyroidism presented with painful defecation due to intestinal adhesions S/P laparoscopic Extensive Lysis of Adhesions developed severe diarrhea after the surgery Assessment/plan: post surgical diarrhea / possible colitis stool culture / c diff start empiric cipro / flagyl IVF hydration if diarrhea continue , giving her immune compromised status will check her out for giardia/cryptosporodium Sinus tachycardia resolved after initiating metoprolol tartrate 37.5 mg by mouth twice a day. continue Holding furosemide 20 mg by mouth daily when necessary. Hypothyroidism--continue levothyroxine sodium 137 g by mouth daily and check TSH Lupus--continue hydroxychloroquine sulfate at 200 mg by mouth twice a day. Chronic pain/insomnia--continue amitriptyline 100 mg by mouth at bedtime, flurbiprofen 100milligrams by mouth twice a day, tapendatol 150 mg by mouth twice a day, topiramate 25 mg by mouth twice a day, and [place] 10/325 one by mouth every 4 hours when necessary. GERD--omeprazole 20 mg by mouth at bedtime changed to pantoprazole 40 mg by mouth at bedtime. Hypercholesterolemia--continue atorvastatin 40 mg by mouth at bedtime. DVT prophylaxis SCD boots
[2016-11-14] MEDS: TOPIRAMATE 25 MG TAB PO SCH ×2 (17:13→20:11)
[2016-11-14] MEDS: CIPROFLOXACIN / D5W 400 MG in PREMIXED IN D5W 200 ML IV SCH (17:15)
[2016-11-14] MEDS: METRONIDAZOLE / NSS 500 MG in PREMIXED NSS 100 ML IV SCH (17:20)
[2016-11-14 20:00] VITALS: BP 121/85; PULSE 69
[2016-11-14] MEDS: AMITRIPTYLINE HCL 100 MG TAB PO SCH (20:11)
[2016-11-14] MEDS: LEVOTHYROXINE 137 MCG TAB PO SCH (20:11)
[2016-11-14] MEDS: PANTOprazole SOD 40 MG TAB PO SCH (20:11)
[2016-11-14] MEDS ORDERED: NURSING VERBAL MED ORDER ONE (21:45)
[2016-11-15 00:06] VITALS: BP 117/79; PULSE 75; TEMP 36.6; O2SAT 99
[2016-11-15] MEDS: CHECK SCOPOLAMINE PATCH PLACEMENT SCH ×2 (00:25→08:00)
[2016-11-15] MEDS: METRONIDAZOLE / NSS 500 MG in PREMIXED NSS 100 ML IV SCH ×2 (00:26→08:40)
[2016-11-15] MEDS: CIPROFLOXACIN / D5W 400 MG in PREMIXED IN D5W 200 ML IV SCH (04:04)
[2016-11-15] MEDS ORDERED: NURSING VERBAL MED ORDER ONE ×2 (06:30→13:15)
[2016-11-15] MEDS: HYDROmorphone HCL 0.5MG/ML 50 ML CASSETTE IV PRN (06:57)
[2016-11-15] MEDS: KETOROLAC 0.5% OP SOLN 3 ML BTL OPL SCH (07:00)
[2016-11-15] MEDS: GENTAMICIN SULFATE 0.3% OP SOLN 5 ML BTL OPL SCH (07:00)
[2016-11-15 07:16] LABS: BASO % 0.2 %; BASO ABS # 0.02 K/uL (0-0.2); COMPLETE YES; EOS % 0.7 %; HEMATOCRIT 37.4 % (37-47); IG% 0.4 %; LYMPH % 28.5 %; LYMPH ABS # 3.21 K/uL (1.2-3.4); MEAN CORPUSCULAR HEMOGLOBIN 32.4 pg (25-34); MEAN CORPUSCULAR HGB CONC 34.5 g/dl (32-36); MEAN PLATELET VOLUME 9.2 fL (7.4-10.4); NEUT % 64.2 %; PLATELET COUNT 232 K/uL (130-400); RED BLOOD COUNT 3.98 M/uL (4.2-5.4); WHITE BLOOD COUNT 11.26 K/uL (4.8-10.8)
[2016-11-15 07:35] VITALS: BP 143/81; PULSE 93; TEMP 36.6; O2SAT 98
[2016-11-15 07:45] LABS: BUN/CREATININE RATIO 14.7 (10-20); CALCIUM 8.9 mg/dl (8.5-10.1); CREATININE 0.85 mg/dl (0.60-1.20); MAGNESIUM 2.1 mg/dl (1.8-2.4); POTASSIUM 3.7 mmol/L (3.5-5.1)
[2016-11-15 07:47] LABS: ALB/GLOB RATIO 1.2 (0.9-2); PHOSPHORUS 3.1 mg/dl (2.5-4.9)
--- NOTE | 2016-11-15 08:33 | SURGERY PROGRESS NOTE ---
DATE: 11/15/2016 Feli is second postoperative day status post extensive lysis of adhesions. She feels well. She is having no issues. Actually, the liquid stools that she was having yesterday has subsided; where she has a formed stool. She definitely feels different than she was before surgery where she had excruciating pain with any formed stool. We checked a C. diff yesterday and that was negative. Her last vitals showed a temperature of 36.6, pulse 93, respirations 16, blood pressure 143/81 and O2 sats 98 on room air. I\T\O; She has 15 out of her [place] drainage, serosanguineous. Urine output is excellent. Laboratory studies this morning; her white count is 11.26 with decreasing left shift. She was started on Cipro and Flagyl by the medical service. At this point, we will advance to a regular diet and see how she does today and see how she tolerates that and if it is okay for the medical service she can be discharged. We will see her back in the office in approximately 2 days and remove the drain. Overall, she feels much better than she had been. ANN
[2016-11-15] MEDS: METOPROLOL TARTRATE 25 MG TAB PO SCH (08:40)
[2016-11-15] MEDS: HYDROXYCHLOROQUINE SULFATE 200 MG TAB PO SCH (08:42)
[2016-11-15] MEDS: TAPENTADOL ER 50 MG TABCR PO SCH (08:42)
[2016-11-15] MEDS: TOPIRAMATE 25 MG TAB PO SCH (08:43)
[2016-11-15] MEDS: HYDROCODONE/ACETAMOPHEN 5/325MG TAB PO PRN ×2 (08:45→13:38)
[2016-11-15] MEDS ORDERED: NICOTINE 21 MG/24 HR TDSY EXT SCH (09:00)
[2016-11-15] MEDS ORDERED: HYDROmorphone INJ 0.5 MG/0.5 ML SYR IV ONE (13:30)
[2016-11-15] MEDS: ONDANSETRON INJ 2 MG/ML 2 ML VIAL IV PRN (13:37)
--- NOTE | 2016-11-15 13:51 | Progress Note ---
Subjective Date of Service: Nov 15, 2016. Subjective Pt evaluation today including: conversation w/ patient, physical exam, chart review, lab review, review of inpatient medication list Review of Systems Constitutional: No chills, No fatigue, No fever, No problem reported, No see HPI, No sweats, No weakness, No weight loss Eyes: No diplopia, No discharge, No eye pain, No problem reported, No redness, No see HPI, No worsening of vision ENT: No dental problems, No hearing loss, No nasal symptoms, No problem reported, No see HPI, No sore throat, No tinnitus, No trouble swallowing, No unusual epistaxis Respiratory: No cough, No dyspnea at rest, No dyspnea on exertion, No hemoptysis, No problem reported, No see HPI, No shortness of breath, No sputum, No wheezing Cardiac: No PND, No chest pain, No claudication, No edema, No orthopnea, No palpitations, No problem reported, No see HPI Abdomen: + diarrhea, No GI bleeding, No constipation, No nausea, No pain, No problem reported, No see HPI, No vomiting Musculoskeletal: No calf pain, No joint pain, No muscle pain, No problem reported, No see HPI, No swelling Female : No abnormal vaginal bleeding, No dysuria, No hematuria, No incontinence, No problem reported, No see HPI, No urinary frequency, No vaginal discharge Neurologic: No balance problems, No memory loss, No numbness/tingling, No paralysis, No problem reported, No see HPI, No vertigo, No weakness Psychiatric: No anhedonism, No anxiety, No depression symptoms, No insomnia, No problem reported, No see HPI, No substance abuse Heme: No abnormal bleeding/bruising, No clotting problems, No night sweats, No problem reported, No see HPI, No swollen lymph nodes Endo: No excessive thirst, No excessive urination, No fatigue, No problem reported, No see HPI Skin: No bleeding, No color change, No itch, No new/changing skin lesions, No problem reported, No rash, No see HPI Objective Vital Signs Date Time Temp Pulse Resp B/P Pulse Ox O2 Delivery O2 Flow Rate FiO2 11/15/16 07:35 36.6 93 16 143/81 98 Room Air 11/15/16 00:06 36.6 75 14 117/79 99 Room Air 11/14/16 20:00 Room Air 11/14/16 20:00 69 121/85 11/14/16 14:54 36.7 82 18 118/70 99 Room Air Physical Exam General Appearance: no apparent distress Eyes: normal inspection, EOMI ENT: normal ENT inspection, hearing grossly normal Neck: supple Respiratory/Chest: chest non-tender, lungs clear, normal breath sounds, no respiratory distress, no accessory muscle use Cardiovascular: regular rate, rhythm, no edema, no gallop, no JVD Abdomen: normal bowel sounds, non tender, soft, no organomegaly Extremities: normal range of motion, non-tender, normal inspection, no pedal edema 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, no motor/sensory deficits, alert, normal mood/affect, oriented x 3 Skin: normal color, warm/dry, no rash Laboratory Results Last 24 Hours Test 11/15/16 06:50 White Blood Count 11.26 K/uL Red Blood Count 3.98 M/uL Hemoglobin 12.9 g/dL Hematocrit 37.4 % Mean Corpuscular Volume 94.0 fL Mean Corpuscular Hemoglobin 32.4 pg Mean Corpuscular Hemoglobin Concent 34.5 g/dl Platelet Count 232 K/uL Mean Platelet Volume 9.2 fL Neutrophils (%) (Auto) 64.2 % Lymphocytes (%) (Auto) 28.5 % Monocytes (%) (Auto) 6.0 % Eosinophils (%) (Auto) 0.7 % Basophils (%) (Auto) 0.2 % Neutrophils # (Auto) 7.23 K/uL Lymphocytes # (Auto) 3.21 K/uL Monocytes # (Auto) 0.68 K/uL Eosinophils # (Auto) 0.08 K/uL Basophils # (Auto) 0.02 K/uL RDW Standard Deviation 44.0 fL RDW Coefficient of Variation 12.8 % Immature Granulocyte % (Auto) 0.4 % Immature Granulocyte # (Auto) 0.04 K/uL Sodium Level 142 mmol/L Potassium Level 3.7 mmol/L Chloride Level 106 mmol/L Carbon Dioxide Level 30 mmol/L Anion Gap 6.0 mmol/L Blood Urea Nitrogen 13 mg/dl Creatinine 0.85 mg/dl Est Creatinine Clear Calc Drug Dose 90.4 ml/min Estimated GFR () 95.2 Estimated GFR (Non- 82.2 BUN/Creatinine Ratio 14.7 Random Glucose 101 mg/dl Calcium Level 8.9 mg/dl Phosphorus Level 3.1 mg/dl Magnesium Level 2.1 mg/dl Total Bilirubin 0.4 mg/dl Aspartate Amino Transf (AST/SGOT) 20 U/L Alanine Aminotransferase (ALT/SGPT) 39 U/L Alkaline Phosphatase 65 U/L Total Protein 7.0 gm/dl Albumin 3.8 gm/dl Globulin 3.2 gm/dl Albumin/Globulin Ratio 1.2 Assessment and Plan 46 years old female with PMHx of previous abdominal surgery (appears to be stomach bypass from her description), Lupus on hydroxychloroquine, HTN and hypothyroidism presented with painful defecation due to intestinal adhesions S/P laparoscopic Extensive Lysis of Adhesions developed severe diarrhea after the surgery Assessment/plan: post surgical diarrhea / possible colitis, resolved stool culture / c diff DC cipro / flagyl DC IVF hydration can be discharge from medical point of view Sinus tachycardia, resolved resolved after initiating metoprolol tartrate 37.5 mg by mouth twice a day. Hypothyroidism--continue levothyroxine sodium 137 g by mouth daily , normal TSH Lupus--continue hydroxychloroquine sulfate at 200 mg by mouth twice a day. Chronic pain/insomnia--continue amitriptyline 100 mg by mouth at bedtime, flurbiprofen 100milligrams by mouth twice a day, tapendatol 150 mg by mouth twice a day, topiramate 25 mg by mouth twice a day, and [place] 10/325 one by mouth every 4 hours when necessary. GERD--omeprazole 20 mg by mouth at bedtime changed to pantoprazole 40 mg by mouth at bedtime. Hypercholesterolemia--continue atorvastatin 40 mg by mouth at bedtime. DVT prophylaxis SCD boots
[2016-11-15 14:01] VITALS: BP 143/81; PULSE 93; TEMP 36.6; O2SAT 98
--- NOTE | 2016-11-16 08:06 | SURGERY PROGRESS NOTE ---
DATE: 11/14/2016 SUBJECTIVE: Feli is first postoperative day status post laparoscopic lysis of dense abdominal adhesions. This morning, she is alert, coherent. She is walking around as she had been last night. She stated every time she goes to the bathroom, she has some liquid stools at this time, I think it is suspected that she was just backed up from the partial obstruction from significant adhesions. Last evening, I had Dr. Cueva see the patient for a tachycardia since she was in 130, we thought it was related to some medicine manipulation from the home use. Her temperature this morning is 36.8, her pulse is 100, respirations 18, blood pressure 123/84, O2 sats 98 on room air. I\T\O, I cannot tell the computer is backed up at this time. Her lab studies seen this morning shows slight elevation in the white count. The abdomen is soft, distended, it is nontender. The [place] Suleman drainage is minimal serosanguineous. Her urine output is excellent. We will discontinue the Lorenz catheter, cut down her fluid intake. She does have +1 pedal edema and start her on a regular diet starting with full liquids first and advance as tolerated. She is certainly not a candidate to go home today. Her chemistry now that the computers is backed up showed a BUN of 9, creatinine 0.6, potassium 4.4. Hemoglobin was 12.9, WBC is 15.01 without a left shift.
--- NOTE | 2016-11-17 12:49 | DISCHARGE SUMMARY ---
PRIMARY DISCHARGE DIAGNOSIS: 1. Left lower quadrant pain with painful defecation. 2. Sinus tachycardia. SECONDARY DISCHARGE DIAGNOSES: 1. History of SVT. 2. Lupus. 3. Hypothyroidism. 4. GERD. 5. Chronic pain/insomnia. PROCEDURE PERFORMED: Laparoscopy with lysis of dense abdominal and pelvic adhesions. CONSULTATIONS: [facility] hospitalist to assist in evaluation of tachycardia. HOSPITAL COURSE: The patient is a 46-year-old female with pain in the left lower quadrant and painful difficult defecation. She was taken to the operating room for diagnostic laparoscopy. We did not see any inflammatory changes in the colon, but she did have significant abdominal and pelvic adhesions, which were lysed. The procedure was well tolerated. She was transferred to the surgical floor. Overnight she became symptomatic with tachycardia, has a history of SVT. The hospitalist was consulted to assist in evaluation. EKG showed sinus tachycardia. Her TSH was normal. She was continued on her usual metoprolol 37.5 mg p.o. b.i.d. On postoperative day 1 she had some diarrhea and was started on Cipro and Flagyl empirically. C. diff was negative. By day 2 her bowels were formed. She was no longer having the pain she was experiencing preoperatively. She tolerated advancing diet. Her heart rate had improved. She was tolerating oral analgesics and was stable for discharge. DISCHARGE INSTRUCTIONS: Discharge home. Follow up with Dr. Chauhan in 2 days for removal of the S[place] drain. DISCHARGE MEDICATIONS: Continue all routine home medications including Elavil 100 mg daily, aspirin 81 mg daily, Lipitor 40 mg daily, vitamin D 3 supplement, Colace 100 mg at bedtime, flurbiprofen 100 mg b.i.d., Lasix 20 mg daily as needed for swelling, [place] 10/325 one tablet every 4 hours, Plaquenil 200 mg p.o. b.i.d., levothyroxine 137 mcg daily, Lopressor 37.5 mg p.o. b.i.d., Prilosec 20 mg daily, Nucynta 150 mg b.i.d., Topamax 25 mg b.i.d.
== END 2016-11-15 14:20 | disposition home or self-care (01) ==
LOC: ENRESERVDT → ENRESERVTM → C.ACU 05:10 → C.MSN 06:23
PROVIDERS: ADMIT Surgery; ATTEND Surgery
DX: K66.0 Peritoneal adhesions (postprocedural) (postinfection) (principal); R19.8 Other specified symptoms and signs involving the digestive system and abdomen; R10.32 Left lower quadrant pain; I47.1 Supraventricular tachycardia; K57.32 Diverticulitis of large intestine without perforation or abscess without bleeding; R00.0 Tachycardia, unspecified; R19.7 Diarrhea, unspecified; F32.9 Major depressive disorder, single episode, unspecified; E78.01 Familial hypercholesterolemia; M79.7 Fibromyalgia; M32.9 Systemic lupus erythematosus, unspecified; G43.909 Migraine, unspecified, not intractable, without status migrainosus; E06.3 Autoimmune thyroiditis; E03.9 Hypothyroidism, unspecified; G47.00 Insomnia, unspecified; K21.9 Gastro-esophageal reflux disease without esophagitis; F17.200 Nicotine dependence, unspecified, uncomplicated; Z79.899 Other long term (current) drug therapy; Z79.82 Long term (current) use of aspirin; Z79.891 Long term (current) use of opiate analgesic; Z79.1 Long term (current) use of non-steroidal anti-inflammatories (NSAID); Z82.49 Family history of ischemic heart disease and other diseases of the circulatory system; Z80.3 Family history of malignant neoplasm of breast; Z83.3 Family history of diabetes mellitus; Z81.8 Family history of other mental and behavioral disorders

== ENCOUNTER → 2017-01-20 | Outpatient (CLI) | payer OTHER ==
[~2017-01-20] MED LIST changes: +AZIT-60 PO; +GABA1CAP4 PO; +HYDR200T5 PO; +METO50TA16 PO
[2017-01-20 17:36] LABS: BASO % 0.3 %; BASO ABS # 0.02 K/uL (0-0.2); COMPLETE YES; EOS % 1.5 %; HEMATOCRIT 46.4 % (37-47); IG% 0.3 %; LYMPH % 35.6 %; LYMPH ABS # 2.55 K/uL (1.2-3.4); MEAN CELL VOLUME 93.7 fL (80-100); MEAN CORPUSCULAR HEMOGLOBIN 31.7 pg (25-34); MEAN CORPUSCULAR HGB CONC 33.8 g/dl (32-36); MEAN PLATELET VOLUME 9.7 fL (7.4-10.4); MONO % 5.7 %; NEUT % 56.6 %; PLATELET COUNT 323 K/uL (130-400); RED BLOOD COUNT 4.95 M/uL (4.2-5.4); WHITE BLOOD COUNT 7.16 K/uL (4.8-10.8)
[2017-01-20 18:17] LABS: BLOOD UREA NITROGEN 9 mg/dl (7-18); CREATININE 0.66 mg/dl (0.60-1.20); GLUCOSE 94 mg/dl (70-99)
[2017-01-20 18:18] LABS: ALT/SGPT 36 U/L (12-78); BUN/CREATININE RATIO 13.9 (10-20); CARBON DIOXIDE 23 mmol/L (21-32); CHLORIDE 107 mmol/L (98-107); POTASSIUM 4.2 mmol/L (3.5-5.1); SODIUM 140 mmol/L (136-145)
[2017-01-20 18:28] LABS: ALB/GLOB RATIO 1.3 (0.9-2); ALKALINE PHOSPHATASE 73 U/L (45-117); AST/SGOT 27 U/L (15-37)
[2017-01-20 18:38] LABS: CALCIUM 9.3 mg/dl (8.5-10.1)
== END | disposition home or self-care (01) ==
LOC: C.LABPVFM 14:33
PROVIDERS: ATTEND Nurse Practitioner
DX: E06.3 Autoimmune thyroiditis (principal); E03.9 Hypothyroidism, unspecified

== ENCOUNTER → 2017-03-04 | Outpatient (CLI) | payer OTHER ==
[~2017-03-04] MED LIST changes: -AZIT-60 PO; -GABA1CAP4 PO; -HYDR200T5 PO; -METO50TA16 PO
--- NOTE | 2017-03-04 12:24 | DIAGNOSTIC IMAGING REPORT ---
RIGHT SHOULDER MIN 2 VIEWS ROUTINE CLINICAL HISTORY: Rotator cuff tear. Trauma. COMPARISON: None. DISCUSSION: No fractures or dislocations are visualized. Surgical clips project over the right lung apex IMPRESSION: No fractures or dislocations identified. Electronically signed by: Rickey Joy M.D. 03/04/2017 12:23 PM Dictated Date/Time: 03/04/2017 12:22 PM
== END | disposition home or self-care (01) ==
LOC: C.LABPVFM 11:59
PROVIDERS: ATTEND Nurse Practitioner Family
DX: M75.101 Unspecified rotator cuff tear or rupture of right shoulder, not specified as traumatic (principal)

== ENCOUNTER 2017-07-10 12:21 | Emergency (ER) | payer OTHER ==
[~2017-07-10] VITALS: Ht 162.6 cm; Wt 89.9 kg
[2017-07-10 12:23] VITALS: TEMP 36.4; Ht 162.6 cm; Wt 89.9 kg
[2017-07-10] MEDS ORDERED: AZITHROMYCIN 250 MG TAB PO ONE (13:00)
[2017-07-10] MEDS ORDERED: AZIT-60 PO (13:02)
--- NOTE | 2017-07-10 13:02 | EMERGENCY ROOM VISIT NOTE ---
ED Visit Note First contact with patient: 12:36 CHIEF COMPLAINT: "I have a sinus infection" HPI: Patient is a 46-year-old white female with extensive past medical history including lupus with chronic immunosuppression, tachycardia, hyperthyroidism, lipidemia, chronic kidney disease, GERD and chronic pain syndrome who presents to emergency department for evaluation of a suspected sinus infection. She has been sick for about 3-4 weeks. She states that she started with an upper respiratory illness area she got a little bit better, then her symptoms worsened in the last 24-48 hours. She now notes thick, foul tasting/foul- smelling postnasal drip, and she is coughing up mucus from the back of her throat. She notes swollen lymph nodes in her neck. She has mild facial pressure, and sinus pressure and congestion. She does have a history of sinus infections and states that this does feel similar. She denies any wheezing or shortness of breath. She denies any chest pain or palpitations. She is limited in the medications that she can use due to her current medications and her other medical issues. She states that she is on medications that already contain acetaminophen and ibuprofen and she is not able to take decongestants due to her tachycardia. She denies any fevers, posterior neck pain or stiffness. No chest pain. REVIEW OF SYSTEMS: Review of systems as per HPI. All other systems reviewed were negative. 10 systems reviewed. PMH: Electronic medical records are reviewed and summarized as above/below. See Problem List. SOCIAL HISTORY: Patient lives at home with her . Smoker. Denies alcohol use. PHYSICAL EXAM: Vital Signs: Reviewed Nurse's notes. MENTAL STATUS: Alert and cooperative. Nontoxic appearing. HEAD: Atraumatic, without temporal or scalp tenderness. EYES: PERRL, EOMI, no discharge or injection. EARS: Tympanic membranes intact, not inflamed, have normal contour. External canals clear. NOSE: Nares patent, turbinates edematous and boggy with thick rhinorrhea. MOUTH: Mucous membranes moist, no lesions, tongue and gums appear normal. THROAT: No pharyngeal injection, exudates, or tonsillar hypertrophy. Postnasal drip noted. Airway is patent. NECK: Supple, nontender, no lymphadenopathy. HEART: Regular rate and rhythm without murmurs, ectopy, gallops, or rubs. LUNGS: Clear to auscultation and breath sounds equal, no wheezes, rales, or rhonchi. SKIN: Normal. NEUROLOGICAL: Sensory and motor functions grossly intact. Normal gait. ED course: Patient was seen and evaluated as above. She was given azithromycin 500 mg orally. She reports that she has tolerated a Z-Jamey well in the past. As stated above, she is not able to take most [id number] medications due to her other medical issues. She feels comfortable that the Z-Jamey will be adequate. She was advised to follow-up with her primary care provider next week if her symptoms are not improving. Differential diagnosis includes viral upper respiratory illness, sinusitis, bronchitis, pneumonia, strep versus viral pharyngitis, among others. Her exam is certainly not consistent with meningitis or encephalitis. Medication reconciliation: I attest that I have personally reviewed the patient' s current medication list. Blood pressure screening : Patient was found to have normal blood pressure on screening and does not require follow-up. Problem List Medical Problems: (1) Abdominal pain Status: Resolved (2) Calculus Of Kidney Status: Resolved (3) Chronic Kidney Disease, Unspecified Status: Chronic (4) Chronic pain syndrome Status: Chronic (5) Depression Status: Chronic (6) Diverticulitis Status: Resolved (7) Fibromyalgia Status: Chronic (8) Gastro-Esophageal Reflux Disease Without Esophagitis Status: Chronic (9) Hyperlipidemia Nec/Nos Status: Chronic (10) Hypothyroidism, Unspecified Status: Chronic (11) Joint pain Status: Resolved (12) Lower GI bleed Status: Resolved (13) Lupus Status: Chronic (14) Migraines Status: Chronic (15) Raynaud's Syndrome Status: Chronic (16) Tachycardia, Unspecified Status: Chronic Surgical Problems: (1) History of appendectomy Status: Resolved (2) History of cholecystectomy Status: Resolved (3) History of esophagogastroduodenoscopy (EGD) Status: Resolved (4) History of hysterectomy Status: Resolved Current/Historical Medications Scheduled Amitriptyline Hcl (Elavil), 150 MG PO HS Aspirin (Aspir-81), 81 MG PO QPM Atorvastatin (Lipitor), 40 MG PO HS Azithromycin (Zithromax), 250 MG PO DAILY Cholecalciferol (Vitamin D3), 3,000 TAB PO HS Docusate Sodium (Colace), 100 MG PO HS Flurbiprofen (Flurbiprofen), 100 MG PO BID Gabapentin (Gabapentin), 300 MG PO DAILY Hydrocodone/Acetaminophen 10MG/325MG ([place] 10MG/325MG), 1 TAB PO Q4 Hydroxychloroquine Sulfate (Plaquenil), 200 MG PO BID Levothyroxine Sodium (Levothyroxine Sodium), 1 TAB PO HS Metoprolol Tartrate (Lopressor) (Lopressor), 50 MG PO BID Omeprazole (Prilosec), 20 MG PO HS Tapentadol Hcl (Nucynta), 150 MG PO BID Topiramate (Topamax), 25 MG PO BID Scheduled PRN Furosemide (Lasix), 20 MG PO DAILY PRN for SWELLING Allergies Coded Allergies: Adhesives (Verified Allergy, Mild, [id number]-AIOM BLISTERS, 11/13/16) Oxycodone (Unverified Allergy, Unknown, EXTENDED VOMITING FOR DAYS, ) Prednisone (Unverified Allergy, Unknown, ORAL PREDNISONE-BLOOD DIARRHEA, ) Rofecoxib (Verified Allergy, Unknown, RASH/HIVES, 11/13/16) Vital Signs Date Time Temp Pulse Resp B/P (MAP) Pulse Ox O2 Delivery O2 Flow Rate FiO2 07/10/17 13:20 100 18 127/91 98 07/10/17 12:23 36.4 102 16 136/83 98 Room Air Medications Administered Medications (Trade) Dose Ordered Sig/Neal Route Start Time Stop Time Status Last Admin Dose Admin Azithromycin (Zithromax Tab) 500 mg NOW ONCE PO 07/10/17 13:00 07/10/17 13:01 DC 07/10/17 13:16 500 MG Departure Information Impression Primary Impression: Sinusitis Prescriptions Azithromycin (ZITHROMAX) 250 Mg Tab 250 MG PO DAILY, #4 TAB Prov: Sharon Wooten PA 07/10/17 Referrals Martita Powers (PCP) Patient Instructions My [facility] Additional Instructions Azithromycin(Zithromax) 250mg: Take one a day for 4 additional days. All antibiotics can cause diarrhea. If this occurs and you feel worse or it does not resolve in 1-2 days follow up with your doctor or return to the Emergency Department as this could be signs of serious underlying problems. Any medication can cause an allergic reaction, stop the pills immediately and return to the ER for rash, hives, breathing difficulties, or swelling. Rest and drink plenty of fluids. Avoid strenuous activity until your symptoms resolve and your breathing returns to normal. Continue current medications. Return to the ER for chest pain, difficulty breathing, persistent fevers, vomiting, worsening of your condition, or as needed. Follow-up with your primary care physician next week if your symptoms are not improving.
[2017-07-10] MEDS ORDERED: METO50TA16 PO (13:07)
[2017-07-10] MEDS ORDERED: HYDR200T5 PO (13:07)
[2017-07-10] MEDS ORDERED: GABA1CAP4 PO (13:07)
[2017-07-10 13:20] VITALS: BP 127/91; PULSE 100; O2SAT 98
== END 2017-07-10 13:21 | disposition home or self-care (01) ==
LOC: C.EDB 12:21 → C.EDA 13:21
DX: J01.90 Acute sinusitis, unspecified (principal); M32.9 Systemic lupus erythematosus, unspecified; D89.9 Disorder involving the immune mechanism, unspecified; R00.0 Tachycardia, unspecified; E03.9 Hypothyroidism, unspecified; F17.200 Nicotine dependence, unspecified, uncomplicated; N18.9 Chronic kidney disease, unspecified; F32.9 Major depressive disorder, single episode, unspecified; M79.7 Fibromyalgia; K21.9 Gastro-esophageal reflux disease without esophagitis; E78.5 Hyperlipidemia, unspecified; G43.909 Migraine, unspecified, not intractable, without status migrainosus; G89.4 Chronic pain syndrome; Z90.710 Acquired absence of both cervix and uterus; Z87.442 Personal history of urinary calculi; Z79.82 Long term (current) use of aspirin